=== PATIENT | female | born 1940 | race Caucasian/White ===

== ENCOUNTER 2017-08-01 12:53 | Inpatient (IN) | END 2017-08-03 19:00 | DRG 690 ==

== ENCOUNTER 2018-12-16 10:30 | Emergency (ER) | payer OTHER ==
[~2018-12-16] VITALS: Wt 88.0 kg
[~2018-12-16 10:30] MED LIST: ALEN70TA5 PO; ATOR20TA38 PO; GABA300C16 PO; LACT1CAP57 PO; METF-849 PO; OXYB5TAB7 PO; TRAM50TA PO
[2018-12-16] MEDS ORDERED: ALBUTEROL 0.083% (NEB) 2.5 MG/3 ML AMP HHN STA (10:34)
[2018-12-16] MEDS ORDERED: METHYLPREDNISOLONE 125 MG INJ IV ONE (11:00)
[2018-12-16] MEDS ORDERED: LEVOFLOXACIN 500MG/D5W (PMX) 100 ML IVPB ONE (11:00)
[2018-12-16] MEDS ORDERED: IPRATROPIUM (NEB) 0.5 MG/2.5 ML AMP INH ONE (11:00)
[2018-12-16] MEDS ORDERED: SODIUM CHLORIDE 0.9% 1L BAG IV* STA (11:00)
[2018-12-16] MEDS ORDERED: ACETAMINOPHEN 325 MG TAB PO ONE (11:30)
[2018-12-16] MEDS ORDERED: ATOR20TA38 PO (12:15)
[2018-12-16] MEDS ORDERED: GABA300C16 PO (12:18)
[2018-12-16] MEDS ORDERED: ASPI325T32 PO (12:21)
[2018-12-16] MEDS ORDERED: ALEN10TA6 PO (12:22)
[2018-12-16] MEDS ORDERED: OXYB5TAB7 PO (12:23)
[2018-12-16] MEDS ORDERED: DOCU-144 PO (12:24)
[2018-12-16] MEDS ORDERED: CLON0.5T14 PO (12:25)
[2018-12-16] MEDS ORDERED: TRAM50TA PO (12:26)
[2018-12-16] MEDS ORDERED: DICL50TA11 PO (12:27)
[2018-12-16] MEDS ORDERED: MEMA10TA PO (12:32)
[2018-12-16] MEDS ORDERED: OMEG-135 PO (12:33)
[2018-12-16] MEDS ORDERED: MULTI PO (12:33)
[2018-12-16] MEDS ORDERED: CALC-50 PO (12:35)
[2018-12-16] MEDS ORDERED: CHOL400T8 PO (12:36)
[2018-12-16] MEDS ORDERED: CRAN1CAP9 PO (12:40)
[2018-12-16] MEDS ORDERED: SERT25TA PO (12:41)
[2018-12-16] MEDS ORDERED: FOLI-49 PO (12:41)
--- NOTE | 2018-12-16 13:04 | ERD ---
ER Documentation Chief Complaint Chief Complaint sob for a few days getting worse today. no chest pain HPI Patient is a 78-year-old female with COPD, diabetes, and asthma who presents with shortness of breath. Please note the history and physical exam is limited secondary to the patient's confusion. The patient was brought in by ambulance. She had shortness of breath which started yesterday. It was worse today. She has had a cough with productive sputum. She had subjective fevers. She does not know the name of her primary doctor. ROS All systems reviewed and are negative except as per history of present illness. Medications Home Meds Reported Medications Sertraline Hcl* (Zoloft*) 25 Mg Tablet, 25 MG PO DAILY, #30 TAB 12/16/18 Folic Acid* (Folic Acid*) 1 Mg Tablet, 1 MG PO BID, TAB 12/16/18 Cranberry Conc/Ascorbic Acid (CRANBERRY CONCENTRATE SOFTGEL) 1 Each Capsule, 4200 MG PO BID, CAP 12/16/18 Cholecalciferol (Vitamin D3) 400 Unit Tablet, 200 UNIT PO DAILY, TAB 12/16/18 Calcium/Magnesium (Calcium with Magnesium Tab) 1 Each Tablet, 1 EACH PO DAILY, TAB 12/16/18 [place]-3 Fatty Acids/Fish Oil (Fish Oil 1,000 mg Capsule) 1 Each Capsule, 3 EACH PO DAILY, CAP 12/16/18 Multivitamins* (Theragran*) 1 Tab Tab, 1 TAB PO DAILY, TAB 12/16/18 Memantine* (Namenda*) 10 Mg Tablet, 10 MG PO BID, #60 TAB 12/16/18 Diclofenac Sodium* (Diclofenac Sodium*) 50 Mg Tablet.dr, 50 MG PO BID PRN for NEEDED, #60 TAB 12/16/18 Tramadol Hcl* (Ultram*) 50 Mg Tablet, 50 MG PO DAILY PRN for PAIN, TAB 12/16/18 Clonazepam* (Clonazepam*) 0.5 Mg Tablet, 0.5 MG PO QHS PRN for NEEDED, TAB 12/16/18 Docusate Sodium* (Colace*) 100 Mg Capsule, 100 MG PO BID, #60 CAP 12/16/18 Oxybutynin Chloride* (Ditropan*) 5 Mg Tab, 5 MG PO BID, TAB 12/16/18 Alendronate Sodium* (Alendronate Sodium*) 10 Mg Tablet, 10 MG PO Q SAT, #30 TAB 12/16/18 Aspirin* (Aspirin* EC) 325 Mg Tab, 325 MG PO DAILY, TAB 12/16/18 Gabapentin* (Gabapentin*) 300 Mg Capsule, 900 MG PO BID, #270 CAP 12/16/18 Atorvastatin Calcium* (Atorvastatin Calcium*) 20 Mg Tablet, 20 MG PO QHS, #30 TAB 12/16/18 Discontinued Reported Medications Alendronate Sodium* (Fosamax*) 70 Mg Tablet, 70 MG PO Q7D, #4 TAB 08/01/17 Atorvastatin Calcium* (Atorvastatin Calcium*) 20 Mg Tablet, 20 MG PO QHS, #30 TAB 08/01/17 Tramadol Hcl* (Ultram*) 50 Mg Tablet, 50 MG PO DAILY PRN for PAIN, TAB 08/01/17 Gabapentin* (Gabapentin*) 300 Mg Capsule, 300 MG PO TID, #90 CAP 08/01/17 Metformin* (Glucophage*) 500 Mg Tab, 500 MG PO BID, #30 TAB 08/01/17 Oxybutynin Chloride* (Ditropan*) 5 Mg Tab, 5 MG PO BID, TAB 08/01/17 Discontinued Scripts Lactobacillus Rhamnosus* (Culturelle*) 1 Each Cap.sprink, 1 CAP PO BID for 5 Days, CAP Prov:AMERICALEELEE 08/01/17 Allergies Allergies: Coded Allergies: Penicillins (Verified Allergy, Severe, 12/16/18) PMhx/Soc History of Surgery: Yes (gall bladder removed (58 years ago)) Anesthesia Reaction: No Hx Respiratory Disorders: Yes (copd, emphysema asthma) Hx Cardiac Disorders: No Hx Psychiatric Problems: No Hx Miscellaneous Medical Probl: Yes (DM2) Hx Alcohol Use: No Hx Substance Use: No Hx Tobacco Use: No Smoking Status: Never smoker FmHx Family History: diabetes Physical Exam Vitals Vital Signs Date Temp Pulse Resp B/P (MAP) Pulse Ox O2 O2 Flow FiO2 Time Delivery Rate 12/16/18 100.7 11:38 12/16/18 124 20 100 Nasal 4.0 11:35 Cannula 12/16/18 100.7 128 22 122/106 96 Nasal 4.0 11:27 (111) Cannula 12/16/18 2 10:58 12/16/18 98.6 80 22 146/62 97 10:40 (90) Physical Exam Const: Mild distress Head: Atraumatic Eyes: Normal Conjunctiva ENT: Normal External Ears, Nose and Mouth. Neck: Full range of motion. No meningismus. Resp: Wheezing with rhonchorous breath sounds diffusely Cardio: Regular rate and rhythm, no murmurs Abd: Soft, non tender, non distended. Normal bowel sounds Skin: No petechiae or rashes Back: No midline or flank tenderness Ext: No cyanosis, or edema Neur: Awake and alert Psych: Normal Mood and Affect Result Diagram: 12/16/18 1054 12/16/18 1054 Results 24 hrs Laboratory Tests Test 12/16/18 10:52 12/16/18 10:54 POC Venous Lactate 3.5 mmol/L White Blood Count 25.3 10^3/ul Red Blood Count 4.36 10^6/ul Hemoglobin 13.9 g/dl Hematocrit 44.2 % Mean Corpuscular Volume 101.4 fl Mean Corpuscular Hemoglobin 31.9 pg Mean Corpuscular Hemoglobin Concent 31.4 g/dl Red Cell Distribution Width 13.5 % Platelet Count 305 10^3/UL Mean Platelet Volume 9.8 fl Immature Granulocytes % 0.600 % Neutrophils % % Segmented Neutrophils % (Manual) 79 % Band Neutrophils % (Manual) 9 % Lymphocytes % % Lymphocytes % (Manual) 7 % Monocytes % % Monocytes % (Manual) 5 % Eosinophils % % Basophils % % Nucleated Red Blood Cells % 0.0 /100WBC Immature Granulocytes # 0.160 10^3/ul Neutrophils # 10^3/ul Neutrophils # (Manual) 20.5 10^3/ul Band Neutrophils # 2.2 10^3/ul Lymphocytes (Manual) 1.7 10^3/ul Lymphocytes # 10^3/ul Monocytes # 10^3/ul Monocytes # (Manual) 1.2 10^3/ul Eosinophils # 10^3/ul Basophils # 10^3/ul Nucleated Red Blood Cells # 10^3/ul Platelet Estimate NORMAL Anisocytosis 1+ Macrocytosis 1+ Sodium Level 141 mmol/L Potassium Level 3.8 mmol/L Chloride Level 102 mmol/L Carbon Dioxide Level 29 mmol/L Anion Gap 10 Blood Urea Nitrogen 18 mg/dl Creatinine 0.78 mg/dl Est Glomerular Filtrat Rate mL/min mL/min Glucose Level 200 mg/dl Calcium Level 9.4 mg/dl Current Medications Medications Dose Sig/Ignacio Start Time Status Last (Trade) Ordered Route PRN Stop Time Admin Dose Reason Admin 125 mg ONCE ONCE 12/16/18 DC 12/16/18 Methylprednis IV 11:00 11:14 olone Sodium 12/16/18 11:01 Succinate (Solu-Medrol) Albuterol 5 mg ONCE STAT 12/16/18 DC 12/16/18 (Proventil HHN 10:34 11:34 0.083% (Neb)) 12/16/18 10:36 Ipratropium 0.5 mg ONCE ONCE 12/16/18 DC 12/16/18 [place] [facility] 11:00 11:34 (Atrovent 12/16/18 11:01 0.02% (Neb)) 100 ml @ ONCE ONCE 12/16/18 DC 12/16/18 Levofloxacin/ 100 mls/hr IVPB 11:00 11:14 Dextrose 12/16/18 11:59 Sodium 2,640 ml BOLUS OVER 2 12/16/18 DC 12/16/18 Chloride HOURS STAT 11:00 11:15 (NS) IV* 12/16/18 11:01 650 mg ONCE ONCE 12/16/18 DC 12/16/18 Acetaminophen PO 11:30 11:38 (Tylenol 12/16/18 11:31 Tab) Procedures/MDM Chest X-ray 1V Interpreted by me: Soft Tissue: No acute abnormalities Bones: No acute abnormalities Mediastinum/Cardiac Silhouette/Lungs: Lower lobe haziness and likely pneumonia Sepsis Documentation: Patient's infectious symptoms have not stabilized and the patient is at risk of rapid decompensation. The patient will be admitted for careful hydration, antibiotic therapy, and infectious source control. SEVERE SEPSIS CRITERIA: Infectious source: Pneumonia End organ damage indicated by: Lactate greater than 2 SEPSIS MANAGEMENT Time of recognition of sepsis: 10:52 AM. Time of recognition of severe sepsis: 10:52 AM. Time of recognition of septic shock: [No septic shock at this time]. 3 HOUR BUNDLE Blood cultures x 2 before broad-spectrum antibiotics: [Yes] 30 ml/kg NS bolus [Completed] Initial lactate 3.5 Repeat lactate pending SEPTIC SHOCK ASSESSMENT: [No] lactic acid > 4.0 [No] Persistent hypotension (SBP < 90 or 40 mmHg drop, MAP < 65) despite 30 mL/kg IV fluid bolus VOLUME REASSESSMENT FOR SEPTIC SHOCK: No septic shock at this time PERSISTENT HYPOTENSION TREATMENT: Comfort care [No] Central line [Not Required] Vasopressor started [Not required] I considered further perfusion assessment with CVP measurement, SCVO2, bedside ultrasound volume assessment, passive leg raise, trial of further fluid bolus. And proceeded with [30 ml/kg fluid bolus of NSS, broad spectrum antibiotics, and admission.] The patient has [employer] insurance and I spoke with Dr. Simms there who has accepted the patient in transfer and will find an available bed at a [facility]. CRITICAL CARE Critical care time [35] minutes Emergent fluid management while maintaining close respiratory support. Provision of immediate and broad-spectrum antibiotic therapy. Simultaneous assessment for possible sources in order to direct targeted therapy. Consideration for invasive and chemical support to prevent cardiopulmonary collapse. Critical care time is independent of procedures performed. Departure Diagnosis: Primary Impression: Severe sepsis Additional Impressions: Shortness of breath Pneumonia Pneumonia type: due to unspecified organism Laterality: left Lung location: lower lobe of lung Qualified Codes: J18.1 - Lobar pneumonia, unspecified organism Condition: Serious MANUEL VINSON MD December 16, 2018 13:04
[2018-12-16] MEDS ORDERED: SOD CHLORIDE 0.9% 1,000 ML IV ONE (14:00)
[2018-12-16] MEDS ORDERED: NORepinephrine 8MG/250 ML (PMX 250 ML ONE (14:42)
[2018-12-16] MEDS ORDERED: NORepinephrine 8MG/250 ML (PMX 250 ML IV SCH (15:00)
[2018-12-16] MEDS ORDERED: LIDOCAINE 1% (MPF) 5 ML VIAL SC ONE ×2 (15:00→16:30)
[2018-12-16] MEDS ORDERED: SOD CHLORIDE 0.9% 1,000 ML IV SCH (18:48)
[2018-12-16] MEDS ORDERED: NACL 0.9% 3 ML SYG IV SCH (19:00)
[2018-12-16] MEDS ORDERED: ACETAMINOPHEN 325 MG TAB PO PRN (19:00)
[2018-12-16] MEDS ORDERED: traMADol 50 MG TAB PO PRN (19:00)
[2018-12-16] MEDS ORDERED: ONDANSETRON 4 MG INJ IV PRN (19:00)
[2018-12-16] MEDS ORDERED: clonAZEPAM 0.5 MG TAB PO PRN (19:00)
[2018-12-16] MEDS ORDERED: DICLOFENAC (EC) 25 MG TAB PO PRN (19:00)
--- NOTE | 2018-12-16 19:07 | HP ---
Date/Time of Note Date/Time of Note DATE: 12/16/18 TIME: 18:54 Assessment/Plan VTE Prophylaxis SCD applied (from Nsg): Yes Pharmacological prophylaxis: LMWH Lines/Catheters IV Catheter Type (from Nrsg): Saline Lock Assessment/Plan Assessment/Plan 78 yo obese woman with history of COPD, diabetes, asthma, dyslipidemia and osteoporosis presents with pneumonia #Septic shock #Community-acquired pneumonia - Briefly requiring vasopressors in the ED but now titrated off - Ordered for admit to ICU but if pressures remain fine off norepi, plan to downgrade to med/surg - Daily levofloxacin for pneumonia (PCN allergy) - She denies recent healthcare exposure - Also will check procalcitonin. #Diabetes - This is listen on admission but no metformin or insulin in home meds - Will check A1C, insulin sliding scale #Dyslipidemia - Cont home statin. DVT: lovenox GI: None Result Diagram: 12/16/18 1054 12/16/18 1054 HPI/ROS Admit Date/Time Admit Date/Time 16 Dec 2018 Hx of Present Illness Ms. Rivero is an obese woman with history of COPD, diabetes, asthma, dyslip idemia and osteoporosis who presents with cough and dyspnea. She lives alone. For past several days she's noticed cough productive of sputum and dyspnea on exertion. Her daughter came to visit today and was concerned; she took the patient's temperature and she was febrile. Called an ambulance to bring her to the ED. Original plan was to transfer the patient to [facility] where she is capitated. However she developed worsening hypotension requiring norepinephine and rising lactate. So will admit her here. ROS She denies chills, night sweats, weight loss, chest pain/pressure/palpitations, neck pain, dysphagia, nausea, vomiting, diarrhea, constipation, abdominal pain. PMH/Family/Social Past Medical History As per HPI Medications Current Medications Norepinephrine 250 ml @ 1.875 mls/ hr TITRATE IV Last administered on 12/16/18at 14:51; Admin Dose 7.5 MLS/HR; Start 12/16/18 at 15:00 Coded Allergies: Penicillins (Verified Allergy, Severe, 12/16/18) Past Surgical History Cholecystectomy Social History Alcohol Use: none Smoking Status: Never smoker Drug Use: none Exam/Review of Systems Vital Signs Vitals Vital Signs Date Temp Pulse Resp B/P (MAP) Pulse Ox O2 O2 Flow FiO2 Time Delivery Rate 12/16/18 115 20 123/78 97 Nasal 4.0 18:00 (93) Cannula 12/16/18 98.6 15:45 Exam Exam Gen: Obese woman fidgeting in gurney, awake and alert. Eyes: PERRL, no icterus HEENT: Moist mucous membranes, clear oropharynx Neck: No JVD, no lymphadenopathy Card: Regular rate and rhythm, no murmurs Pulm: Clear to auscultation bilaterally. Breathing comfortably on facemask. Abd: Soft, nontender, nondistended. Ext: No cyanosis/clubbing/edema Skin: warm, dry, well perfused. ZULEYKA KHAN MD December 16, 2018 19:06
[2018-12-16] MEDS ORDERED: GLUCAGON 1 MG INJ IM PRN (20:00)
[2018-12-16] MEDS ORDERED: GLUCOSE GEL 15 GRAM TUBE BUCCAL PRN (20:00)
[2018-12-16] MEDS ORDERED: GLUCOSE GEL 15 GRAM TUBE PO PRN ×2 (20:00)
[2018-12-16] MEDS ORDERED: DEXTROSE 50% 50 ML SYRINGE IV PRN ×2 (20:00)
[2018-12-16] MEDS ORDERED: FOLIC ACID 1 MG TAB PO SCH (22:00)
[2018-12-16] MEDS ORDERED: OXYBUTYNIN 5 MG TAB PO SCH (22:00)
[2018-12-16] MEDS ORDERED: ATORVASTATIN 20 MG TAB PO SCH (22:00)
[2018-12-16] MEDS ORDERED: INSULIN ASPART [NOVOLOG] 3 ML PEN SC SCH (22:00)
[2018-12-16] MEDS ORDERED: DOCUSATE SODIUM 100 MG CAP PO SCH (22:00)
[2018-12-16] MEDS ORDERED: MEMANTINE 10 MG TAB PO SCH (22:00)
[2018-12-16] MEDS ORDERED: GABAPENTIN 300 MG CAP PO SCH (22:00)
[2018-12-17] MEDS ORDERED: ACCU-CHEK XX SCH (02:00)
[2018-12-17] MEDS ORDERED: ASPIRIN (EC) 325 MG TAB PO SCH (09:00)
[2018-12-17] MEDS ORDERED: ENOXAPARIN 40 MG/0.4 ML SYG SC SCH (09:00)
[2018-12-17] MEDS ORDERED: CHOLECALCIFEROL 400 UNITS TAB PO SCH (09:00)
[2018-12-17] MEDS ORDERED: SERTRALINE 50 MG TAB PO SCH (09:00)
[2018-12-17] MEDS ORDERED: MULTIVITAMINS THERAPEUTIC TAB PO SCH (09:00)
[2018-12-17] MEDS ORDERED: HALOPERIDOL 5 MG INJ IM PRN (09:30)
[2018-12-17] MEDS ORDERED: HALOPERIDOL 5 MG INJ IM ONE (10:00)
[2018-12-17] MEDS ORDERED: LEVOFLOXACIN 750MG/D5W (PMX) 150 ML IVPB SCH (10:00)
--- NOTE | 2018-12-17 16:51 | DS ---
Date/Time of Note Date/Time of Note DATE: 12/17/18 TIME: 16:48 Discharge Summary Admission/Discharge Info Admit Date/Time December 16, 2018 Discharge Date/Time December 17, 2018 Discharge Diagnosis Community-acquired pneumonia Patient Condition: Good Hx of Present Illness Ms. Rivero is an obese woman with history of COPD, diabetes, asthma, dyslipidemia and osteoporosis who presents with cough and dyspnea. She lives alone. For past several days she's noticed cough productive of sputum and dyspnea on exertion. Her daughter came to visit today and was concerned; she took the patient's temperature and she was febrile. Called an ambulance to bring her to the ED. Original plan was to transfer the patient to [facility] where she is capitated. However she developed worsening hypotension requiring norepinephine and rising lactate. So will admit her here. Hospital Course In addition to being hypotensive, the patient also had rising lactate from 6.6 to 7.5. However after briefly being on norepinephrine while boarding in the ED, her hemodynamics stabilized. Blood pressure returned to normal and she was tapered off norepinephrine before midnight on 12/16. She had good appetite and mental status. Of note she is still hypoxic, requiring 6L oxygen to maintain saturation >92%. At home she uses 2L oxygen. The patient was determined to be stable for transfer to [facility]. Home Meds Reported Medications Sertraline Hcl* (Zoloft*) 25 Mg Tablet, 25 MG PO DAILY, #30 TAB 12/16/18 Folic Acid* (Folic Acid*) 1 Mg Tablet, 1 MG PO BID, TAB 12/16/18 Cranberry Conc/Ascorbic Acid (CRANBERRY CONCENTRATE SOFTGEL) 1 Each Capsule, 4200 MG PO BID, CAP 12/16/18 Cholecalciferol (Vitamin D3) 400 Unit Tablet, 200 UNIT PO DAILY, TAB 12/16/18 Calcium/Magnesium (Calcium with Magnesium Tab) 1 Each Tablet, 1 EACH PO DAILY, TAB 12/16/18 [place]-3 Fatty Acids/Fish Oil (Fish Oil 1,000 mg Capsule) 1 Each Capsule, 3 EACH PO DAILY, CAP 12/16/18 Multivitamins* (Theragran*) 1 Tab Tab, 1 TAB PO DAILY, TAB 12/16/18 Memantine* (Namenda*) 10 Mg Tablet, 10 MG PO BID, #60 TAB 12/16/18 Diclofenac Sodium* (Diclofenac Sodium*) 50 Mg Tablet.dr, 50 MG PO BID PRN for NEEDED, #60 TAB 12/16/18 Tramadol Hcl* (Ultram*) 50 Mg Tablet, 50 MG PO DAILY PRN for PAIN, TAB 12/16/18 Clonazepam* (Clonazepam*) 0.5 Mg Tablet, 0.5 MG PO QHS PRN for NEEDED, TAB 12/16/18 Docusate Sodium* (Colace*) 100 Mg Capsule, 100 MG PO BID, #60 CAP 12/16/18 Oxybutynin Chloride* (Ditropan*) 5 Mg Tab, 5 MG PO BID, TAB 12/16/18 Alendronate Sodium* (Alendronate Sodium*) 10 Mg Tablet, 10 MG PO Q SAT, #30 TAB 12/16/18 Aspirin* (Aspirin* EC) 325 Mg Tab, 325 MG PO DAILY, TAB 12/16/18 Gabapentin* (Gabapentin*) 300 Mg Capsule, 900 MG PO BID, #270 CAP 12/16/18 Atorvastatin Calcium* (Atorvastatin Calcium*) 20 Mg Tablet, 20 MG PO QHS, #30 TAB 12/16/18 Discontinued Reported Medications Alendronate Sodium* (Fosamax*) 70 Mg Tablet, 70 MG PO Q7D, #4 TAB 08/01/17 Atorvastatin Calcium* (Atorvastatin Calcium*) 20 Mg Tablet, 20 MG PO QHS, #30 TAB 08/01/17 Tramadol Hcl* (Ultram*) 50 Mg Tablet, 50 MG PO DAILY PRN for PAIN, TAB 08/01/17 Gabapentin* (Gabapentin*) 300 Mg Capsule, 300 MG PO TID, #90 CAP 08/01/17 Metformin* (Glucophage*) 500 Mg Tab, 500 MG PO BID, #30 TAB 08/01/17 Oxybutynin Chloride* (Ditropan*) 5 Mg Tab, 5 MG PO BID, TAB 08/01/17 Discontinued Scripts Lactobacillus Rhamnosus* (Culturelle*) 1 Each Cap.sprink, 1 CAP PO BID for 5 Days, CAP Prov:AMERICALEELEE 08/01/17 Primary Care Provider Not On Staff Doctor Time spent on discharge: > 30 minutes Pending Labs Laboratory Tests Test 12/16/18 19:45 12/17/18 03:50 12/17/18 05:38 12/17/18 11:07 Procalcitonin 0.05 ng/mL (0.00-0.1 0) Bedside 125 Glucose mg/dL (70-220) White Blood 16.5 Count 10^3/ul (4.8-1 0.8) Red Blood 3.53 Count 10^6/ul (4.20- 5.40) Hemoglobin 11.6 g/dl (12.0-16. 0) Hematocrit 35.7 % (37.0-47.0) Mean 101.1 Corpuscular fl (82.0-101.0 Volume ) Mean 32.9 Corpuscular pg (29.0-33.0) Hemoglobin Mean 32.5 Corpuscular g/dl (32.0-37. Hemoglobin Conc 0) ent Red Cell 13.7 Distribution % (11.5-14.5) Width Platelet Count 278 10^3/UL (140-4 15) Mean Platelet 10.0 Volume fl (7.4-10.4) Immature 0.600 Granulocytes % % (0.001-0.429 ) Neutrophils % 78.2 % (39.0-77.0) Lymphocytes % 13.7 % (15.0-51.0) Monocytes % 6.9 % (0.0-11.0) Eosinophils % 0.3 % (0.0-7.0) Basophils % 0.3 % (0.0-2.0) Nucleated Red 0.0 Blood Cells % /100WBC (0.0-0 .0) Immature 0.100 Granulocytes # 10^3/ul (0.0-0 .031) Neutrophils # 12.9 10^3/ul (1.6-7 .5) Lymphocytes # 2.3 10^3/ul (0.8-2 .9) Monocytes # 1.1 10^3/ul (0.3-0 .9) Eosinophils # 0.1 10^3/ul (0.0-0 .5) Basophils # 0.1 10^3/ul (0.0-0 .1) Nucleated Red 0.0 Blood Cells # 10^3/ul (0.0-0 .0) Sodium Level 142 mmol/L (135-14 4) Potassium 3.9 Level mmol/L (3.5-5. 1) Chloride Level 109 mmol/L (97-110 ) Carbon Dioxide 25 Level mmol/L (21-31) Anion Gap 8 (5-13) Blood Urea 14 Nitrogen mg/dl (7-20) Creatinine 0.66 mg/dl (0.44-1. 00) Est Glomerular mL/min (>60) Filtrat Rate mL/min Glucose Level 123 mg/dl (70-220) Hemoglobin A1c 6.8 % (0-5.9) Calcium Level 8.3 mg/dl (8.4-10. 2) Phosphorus 2.1 Level mg/dl (2.5-4.9 ) Magnesium 1.8 Level mg/dl (1.7-2.5 ) Total 0.6 Bilirubin mg/dl (0.2-1.3 ) Direct 0.00 Bilirubin mg/dl (0.00-0. 20) Indirect 0.6 Bilirubin mg/dl (0-1.1) Aspartate Amino 20 Transf (AST/SGO IU/L (15-46) T) Alanine 15 Aminotransferas IU/L (13-69) e (ALT/SGPT) Alkaline 52 Phosphatase IU/L (42-121) Total Protein 6.5 g/dl (6.1-8.1) Albumin 3.6 g/dl (3.3-4.9) Globulin 2.90 g/dl (1.3-3.2) Albumin/Globuli 1.24 n Ratio Thyroid 3.490 Stimulating MIU/L (0.465-4 Hormone (TSH) .680) Lactic Acid 1.3 Level mmol/L (0.5-2. 0) ZULEYKA KHAN MD December 17, 2018 16:51
[2018-12-17 19:54] VITALS: BP 123/51; PULSE 83; RESP 25
== END 2018-12-17 19:56 | disposition short-term general hospital (02) ==
LOC: E/R 10:30 → SUATTDRO 16:33 → CANRESERV 12-17 07:09 → EDBEDREQSVC 12-17 08:26 → EDBEDREQ 12-17 08:26 → EDBEDREQSVC 12-17 09:15 → EDBEDREQ 12-17 09:49 → CANRESERV 12-17 12:00 → E/R 12-17 19:56 → CANBEDREQ 12-17 20:48
PROVIDERS: ATTEND Internal Medicine
DX: A41.9 Sepsis, unspecified organism (principal); E11.9 Type 2 diabetes mellitus without complications; J44.1 Chronic obstructive pulmonary disease with (acute) exacerbation; R65.20 Severe sepsis without septic shock; J18.1 Lobar pneumonia, unspecified organism; Z79.82 Long term (current) use of aspirin
CPT/HCPCS: 36415; 36569; 71045; 76937; 80048; 80053; 82962; 83036; 83605; 83735; 84100; 84145; 84443; 85025; 87040; 94664; 96361; 96365; 96372; 96375; 99285; C1769; J1630; J1956; J2930; J7030